=== PATIENT | male | born 1990 | race Caucasian/White ===

== ENCOUNTER 2018-01-22 14:52 | Emergency (ER) | payer BC, OTHER ==
[2018-01-22 15:08] VITALS: BP 111/63
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
== END 2018-01-22 16:30 | disposition home or self-care (01) ==
LOC: UCEAST 14:52
DX: S71.152A Open bite, left thigh, initial encounter (principal); W50.3XXA Accidental bite by another person, initial encounter; Y92.219 Unspecified school as the place of occurrence of the external cause
CPT/HCPCS: 99212; G0463

== ENCOUNTER 2019-05-22 12:50 | Emergency (ER) | payer OTHER ==
[2019-05-22 14:09] VITALS: BP 113/64
--- NOTE | 2019-05-22 14:28 | UC ---
Throat Pain/Nasal Frantz HPI - HPI Summary HPI Summary: 29-year-old male with sore throat and head congestion over the past 3 days. He did not get a flu shot. Denies any fever occasionally has chills. - History of Current Complaint Chief Complaint: UCRespiratory Stated Complaint: SORE THROAT Time Seen by Provider: 05/22/19 14:05 Hx Obtained From: Patient Onset/Duration: Gradual Onset Severity: Mild Pain Intensity: 7 Cough: Nonproductive Associated Signs & Symptoms: Positive: Nasal Discharge - Allergies/Home Medications Allergies/Adverse Reactions: Allergies Allergy/AdvReac Type Severity Reaction Status Date / Time No Known Allergies Allergy Verified 05/22/19 14:09 Home Medications: Home Medications Dm/Acetaminophen/Doxylamine [Nighttime Cold and Flu Liquid] 1 dose PO ONCE PRN 05/22/19 [History Confirmed 05/22/19] Ibuprofen TAB* [Motrin TAB* 400 MG] 400 mg PO DAILY PRN 05/22/19 [History Confirmed 05/22/19] PMH/Surg Hx/FS Hx/Imm Hx Previously Healthy: Yes - Surgical History Surgical History: Yes Surgery Procedure, Year, and Place: As undesended testicle - Family History Known Family History: Positive: Cardiac Disease - Social History Alcohol Use: Occasionally Substance Use Type: Excessive Caffeine Smoking Status (MU): Former Smoker Review of Systems All Other Systems Reviewed And Are Negative: Yes Constitutional: Positive: Fever, Chills ENT: Positive: Sore Throat, Ear Ache, Nasal Discharge Respiratory: Positive: Cough - Nonproductive dry cough Is Patient Immunocompromised?: No Physical Exam Triage Information Reviewed: Yes Appearance: Well-Appearing, No Pain Distress, Well-Nourished Vital Signs: Initial Vital Signs Temp 99.6 F 05/22/19 14:02 Pulse 97 05/22/19 14:02 Resp 22 05/22/19 14:02 BP 113/64 05/22/19 14:02 Pulse Ox 97 05/22/19 14:02 Vital Signs Reviewed: Yes Eyes: Positive: Conjunctiva Clear ENT: Positive: Hearing grossly normal, Pharyngeal erythema - Very mild pharyngeal erythema., Nasal congestion, Nasal drainage - Nasal coryza, TMs normal, Uvula midline Neck: Positive: Supple, Nontender, No Lymphadenopathy Respiratory: Positive: Lungs clear, Normal breath sounds, No respiratory distress, No accessory muscle use Cardiovascular: Positive: RRR, No Murmur, Pulses Normal, Brisk Capillary Refill Musculoskeletal Exam: Normal Neurological Exam: Normal Psychological Exam: Normal Skin Exam: Normal Throat Pain/Nasal Course/Dx - Course Course Of Treatment: Rapid strep test negative Patient is comfortable here. I feel this is a viral upper respiratory illness however may be the flu but he appears well and he can do comfort measures at home. He is to follow-up with his primary care provider as needed if no improvement in 3 or 4 days. - Differential Dx/Diagnosis Provider Diagnosis: URI (upper respiratory infection), Pharyngitis Discharge ED - Sign-Out/Discharge Documenting (check all that apply): Patient Departure All imaging exams completed and their final reports reviewed: No Studies - Discharge Plan Condition: Good Disposition: HOME Patient Education Materials: Pharyngitis (ED) Referrals: Dannie Herron MD [Primary Care Provider] - Additional Instructions: Increase fluids, rest, [id number] cold medications as directed. Follow up with your primary care provider in 3 or 4 days if no improvement. - Billing Disposition and Condition Condition: GOOD Disposition: Home
== END 2019-05-22 14:36 | disposition home or self-care (01) ==
LOC: UCCORT 12:50
DX: J06.9 Acute upper respiratory infection, unspecified (principal); J02.9 Acute pharyngitis, unspecified; H92.09 Otalgia, unspecified ear; Z87.891 Personal history of nicotine dependence
CPT/HCPCS: 87651; 99211; G0463